=== PATIENT | male | born 1970 | race Caucasian/White ===

== ENCOUNTER 2018-11-21 11:09 | Inpatient (IN) | payer MEDICAID ==
[~2018-11-21] VITALS: Ht 162.6 cm; Wt 65.9 kg
--- NOTE | 2018-11-21 11:15 | NUR ---
pt bib remsa for n/v and cyclic vomitting. pt continues to stick finger down his throat. pt wanting pain medications. pt placed on bp, and cont. pulse oximeter. per remsa, pt will stick his finger down his throat and make himself vagal down. per remsa pulse will drop to low 30's. pt instructed not to stick finger down his throat.assessment completed.
[2018-11-21] MEDS ORDERED: SODIUM CHLORIDE 0.9% 1,000 ML IV ONE ×2 (11:26→12:40)
[2018-11-21] MEDS ORDERED: DIPHENHYDRAMINE 50 MG/ML, 1ML IVPush ONE (11:30)
[2018-11-21] MEDS ORDERED: SODIUM CHLORIDE FLUSH 10ML SYR IVF ONE (11:30)
[2018-11-21] MEDS ORDERED: ONDANSETRON 2MG/ML, 2ML IVPush ONE (11:30)
[2018-11-21] MEDS ORDERED: SODIUM CHLORIDE 0.9% 1,000ML IVBOLUS ONE (11:30)
[2018-11-21 11:56] LABS: BASOPHILS # (AUTO) 0.03 x10^3/uL (0-0.1); BASOPHILS % (AUTO) 0 % (0-1); EOSINOPHILS # (AUTO) 0.04 x10^3/uL (0-0.4); EOSINOPHILS % (AUTO) 0 % (1-7); LYMPHOCYTES # (AUTO) 1.43 x10^3/uL (1-3.4); LYMPHOCYTES % (AUTO) 11 % (22-44); MD NO; MEAN CORPUSCULAR HEMOGLOBIN 29.6 pg (27.5-34.5); MEAN CORPUSCULAR HGB CONC 33.3 g/dL (33.2-36.2); MEAN CORPUSCULAR VOLUME 88.6 fL (81-97); MEAN PLATELET VOLUME 7.5 fL (7.4-10.4); MONOCYTES # (AUTO) 0.42 x10^3/uL (0.2-0.8); MONOCYTES % (AUTO) 3 % (2-9); NEUTROPHILS # (AUTO) 11.07 x10^3/uL (1.8-6.8); NEUTROPHILS % (AUTO) 85 % (42-75); PLATELET COUNT 323 x10^3/uL (130-400); RED BLOOD COUNT 4.66 x10^6/uL (4.38-5.82); RED CELL DISTRIBUTION WIDTH 13.4 % (9.4-14.8)
[2018-11-21 12:06] LABS: ALANINE AMINOTRANSFERASE 17 U/L (12-78); ALBUMIN 3.9 g/dL (3.4-5.0); ANION GAP 11 mmol/L (5-15); CHLORIDE 110 mmol/L (98-107); CREATININE 1.06 mg/dL (0.7-1.3)
[2018-11-21] MEDS ORDERED: HALOPERIDOL 5 MG/ML ONE (12:07)
[2018-11-21] MEDS ORDERED: DIPHENHYDRAMINE 50 MG/ML, 1ML ONE (12:07)
[2018-11-21] MEDS ORDERED: ONDANSETRON 2MG/ML, 2ML ONE (12:07)
[2018-11-21 12:09] LABS: ALKALINE PHOSPHATASE 62 U/L (45-117); BILIRUBIN,TOTAL 0.2 mg/dL (0.2-1.0); TOTAL PROTEIN 7.1 g/dL (6.4-8.2)
--- NOTE | 2018-11-21 12:15 | NUR ---
at bedside and telling to not stick his finger down his throat. pt cooperative for .
[2018-11-21] MEDS ORDERED: HALOPERIDOL 5 MG/ML IV ONE (12:30)
[2018-11-21] MEDS ORDERED: SODIUM CHLORIDE FLUSH 10ML SYR IVF PRN (13:00)
[2018-11-21] MEDS ORDERED: PROMETHAZINE 25 MG/ML, 1ML IM ONE (13:00)
[2018-11-21] MEDS ORDERED: PROMETHAZINE 25 MG/ML, 1ML ONE (13:09)
--- NOTE | 2018-11-21 13:24 | NUR ---
pt with nausea and wanting pain medications. phenergan 25mg im given. report given to callie fallon. pt will then be transferred.
[2018-11-21] MEDS ORDERED: MORPHINE SULFATE 4 MG/ML, 1ML ONE (14:17)
[2018-11-21] MEDS ORDERED: PROMETHAZINE 25 MG/ML, 1ML IM PRN (14:30)
[2018-11-21] MEDS ORDERED: ONDANSETRON 2MG/ML, 2ML IVPush PRN (14:30)
[2018-11-21] MEDS ORDERED: KETOROLAC 30 MG/1 ML IV PRN (14:30)
[2018-11-21] MEDS ORDERED: ONDANSETRON ODT 4 MG PO PRN (14:30)
[2018-11-21] MEDS ORDERED: morphine SULFATE 10 MG/ML, 1ML IVPush PRN (14:30)
[2018-11-21] MEDS ORDERED: METOCLOPRAMIDE 5 MG/ML, 2ML IVPush PRN (14:30)
[2018-11-21] MEDS ORDERED: ENOXAPARIN 40 MG/0.4 ML SQ SCH (14:30)
[2018-11-21] MEDS ORDERED: ACETAMINOPHEN 325 MG TABLET PO PRN (14:30)
[2018-11-21] MEDS: SODIUM CHLORIDE 0.9% 1,000 ML IV SCH ×2 (14:31→20:48)
[2018-11-21 18:41] LABS: MICROSCOPIC AUTO
[2018-11-21 18:42] LABS: CULTURE INDICATED? NO
[2018-11-21 20:33] VITALS: BP 108/48
[2018-11-21 21:40] LABS: AMPHETAMINE SCREEN, URINE Negative (Negative); BARBITURATE SCREEN, URINE Negative (Negative); BENZODIAZEPINE SCREEN, URINE Negative (Negative); CANNABINOID SCREEN, URINE Positive (Negative); COCAINE SCREEN, URINE Negative (Negative); METHADONE SCREEN, URINE Negative (Negative); OPIATE SCREEN, URINE Positive (Negative)
[2018-11-21] MEDS: FAMOTIDINE 20 MG/2 ML IVPush SCH (21:40)
[2018-11-22] MEDS: SODIUM CHLORIDE 0.9% 1,000 ML IV SCH (02:40)
[2018-11-22 03:55] VITALS: BP 128/72
[2018-11-22 05:47] LABS: ANION GAP 7 mmol/L (5-15); CHLORIDE 114 mmol/L (98-107)
[2018-11-22 05:49] LABS: BASOPHILS # (AUTO) 0.04 x10^3/uL (0-0.1); BASOPHILS % (AUTO) 1 % (0-1); EOSINOPHILS # (AUTO) 0.09 x10^3/uL (0-0.4); EOSINOPHILS % (AUTO) 1 % (1-7); LYMPHOCYTES % (AUTO) 24 % (22-44); MD NO; MEAN CORPUSCULAR HEMOGLOBIN 29.7 pg (27.5-34.5); MEAN CORPUSCULAR HGB CONC 33.6 g/dL (33.2-36.2); MEAN CORPUSCULAR VOLUME 88.4 fL (81-97); MEAN PLATELET VOLUME 7.4 fL (7.4-10.4); MONOCYTES # (AUTO) 0.71 x10^3/uL (0.2-0.8); MONOCYTES % (AUTO) 7 % (2-9); NEUTROPHILS # (AUTO) 6.84 x10^3/uL (1.8-6.8); NEUTROPHILS % (AUTO) 68 % (42-75); PLATELET COUNT 285 x10^3/uL (130-400); RED BLOOD COUNT 4.26 x10^6/uL (4.38-5.82); RED CELL DISTRIBUTION WIDTH 14.1 % (9.4-14.8)
[2018-11-22 06:00] LABS: CREATININE 1.09 mg/dL (0.7-1.3)
[2018-11-22] MEDS ORDERED: MAGNESIUM SULFATE PMX 2GM/50ML 50 ML IV ONE (07:00)
[2018-11-22 08:00] VITALS: BP_SYST 122; BP_SYST 128; BP_DIAS 71; BP_DIAS 86
[2018-11-22] MEDS: FAMOTIDINE 20 MG/2 ML IVPush SCH (08:45)
[2018-11-22] MEDS ORDERED: NEUTRA PHOS K 250 MG TABLET PO SCH (09:00)
== END 2018-11-22 12:23 | disposition home or self-care (01) | DRG 392 ==
LOC: ED 12:51 → EDIP 13:00 → 4NOR 13:33 → DCLOUNGE 11-22 12:20
PROVIDERS: ADMIT Hospitalist; ATTEND Hospitalist
DX: K31.89 Other diseases of stomach and duodenum (principal); E78.5 Hyperlipidemia, unspecified; E86.0 Dehydration; R11.2 Nausea with vomiting, unspecified; F12.90 Cannabis use, unspecified, uncomplicated; I10 Essential (primary) hypertension; R73.9 Hyperglycemia, unspecified; Z71.51 Drug abuse counseling and surveillance of drug abuser
CPT/HCPCS: 36415; 74018; J3490; 80048; 80053; 80307; 81001; 83605; 83690; 83735; 84100; 84443; 85025; G0378; J2405; J2550; J1200; J1630; J3475; J7030